=== PATIENT | female | born 1995 | race Caucasian/White ===

== ENCOUNTER → 2020-11-16 | Outpatient (CLI) | payer BC ==
--- NOTE | 2020-11-16 17:09 | Diagnostic Imaging Report ---
INDICATION: Anatomy scan. TECHNIQUE: Multiple real-time grayscale images were obtained over the gravid uterus. COMPARISON: None FINDINGS: A single live intrauterine gestation is visualized in cephalic presentation. heart tones were measured at 126 bpm. The placenta is anterior and not low lying. Amniotic fluid is visually normal although no measurements were obtained during the exam. The cervical length measures 4.4 cm. Views of the adnexa demonstrate no evidence of mass. Cerebellum: visualized Lateral ventricles: visualized Cavum septum pellucidum: visualized Nasal Bone: visualized Face: visualized Stomach: visualized Kidneys: visualized Bladder: visualized Three vessel cord: visualized Cord insertion: visualized 4 chamber heart: visualized outflow tracts: Not well visualized Spine, upper: Not well visualized Spine, lower: Not well visualized Upper extremities: visualized Lower extremities: visualized Hands: Visualized, however not all fingers are well seen. Feet: Visualized, however not all toes are well seen. Biometrical measurements are as follows: Biparietal 4.74 cm, age 20 weeks 3 days. Head circumference 17.79 cm, age 20 weeks 2 days. Abdominal circumference 15.25 cm, age 20 weeks 4 days. Femur length 3.63 cm, age 21 weeks 4 days. Sonographic estimate age: 20 weeks 5 days. Sonographic estimated date of delivery: 03/31/2021. Estimated Weight: 382 gm (+/- 56 gm). LMP percentile: 93%. heart rate: 126 beats per minute. number: 1 of 1. IMPRESSION: 1. Single live intrauterine gestation is visualized measuring 20 weeks 5 days with an estimated due date of 03/31/2021. These are within range with the clinical dates. 2. The outflow tracts and upper and lower spine are not well visualized due to position. The remainder of the anatomic structures are seen and have a normal appearance. Recommend follow-up as indicated. Dictated by: Dictated on workstation # [id number]
== END ==
LOC: RAD 15:07
PROVIDERS: ATTEND Obstetrics & Gynecology
DX: Z34.92 Encounter for supervision of normal pregnancy, unspecified, second trimester (principal); Z3A.20 20 weeks gestation of pregnancy
CPT/HCPCS: 76805

== ENCOUNTER → 2021-03-28 | Outpatient (CLI) ==
[2021-03-28 12:34] LABS: URINE CREATININE FOR RATIO 38 MG/DL (30-125)
[2021-03-28 12:35] LABS: URINE PROTEIN FOR RATIO ONLY < 6 MG/DL (6-12)
== END ==
LOC: MERGE 12:11 → LABNPT 12:11
PROVIDERS: ATTEND Obstetrics & Gynecology
DX: O13.9 Gestational [pregnancy-induced] hypertension without significant proteinuria, unspecified trimester (principal); Z3A.00 Weeks of gestation of pregnancy not specified
CPT/HCPCS: 82570; 84156

== ENCOUNTER 2021-04-03 19:00 | Inpatient (IN) | payer BC ==
[2021-04-03] VITALS (8 sets, daily range): BP systolic 132–145; BP diastolic 78–89
[~2021-04-03] VITALS: Ht 167.7 cm; Wt 109.5 kg
--- OUTSIDE RECORDS SUMMARY | 2021-04-03 19:29 | XMS REPORT | CCD ---
Author Author Brenda Oconnor, Ne Mercedes Organization [facility] Address [address] [place] [address] Phone Care Team Providers Care Early Childhood Worker Name Role Phone PP Unavailable CCM Unavailable Summary Purpose Interface Exchange Insurance Providers Payer name Policy type / Coverage type Covered libertarian ID Effective Begin Date Effective End Date Blue Cross Blue Shield Blue Cross/Blue Shield [id number] Unknown Family history Mother Diagnosis Age At Onset Hypertension Unknown Fibromyalgia Unknown Father Diagnosis Age At Onset Hypertension Unknown Grandmother Diagnosis Age At Onset Breast cancer Unknown Skin cancer Unknown Hypertension Unknown Stroke Unknown Cancer Unknown Diabetes mellitus Type 2 Unknown Grandfather Diagnosis Age At Onset Myocardial infarction Unknown Diabetes mellitus Type 2 Unknown Grandfather Diagnosis Age At Onset Prostate Cancer Unknown Transient ischemic attack (TIA) Unknown Diabetes mellitus Type 2 Unknown Grandmother Diagnosis Age At Onset Multiple sclerosis Unknown Social History Social History Element Codes Description Effective Dates Marital status Unknown 03/29/2021 Employment Unknown Currently employed [employer] 03/29/[address]: 954509230 Has never smoked or chewed tobacco 03/29/[address]: 320553480 Never drinks alcoho l currently alcohol 03/29/2021 Has the patient ever used illegal drugs? Unknown Has nev er used illegal drugs 03/29/2021 Allergies, Adverse Reactions, Alerts Substance Reaction Codes Entered Date Inactivated Date Status * NO KNOWN ENVIRONMENTAL ALLERGIES Unknown 03/29/2021 N o Inactive Date Active * NO KNOWN FOOD ALLERGIES Unknown 03/29/2021 No Inactiv e Date Active _ Unknown 03/29/2021 No Inactive Date Active Problems Condition Codes Effective Dates Condition Status Hypertension Unknown 03/29/2021 Active Cervicalgia ICD-10: M54.2 ICD-9: 723.1 03/29/2021 Active Essential (primary) hypertension ICD-10: I10 ICD-9: 401.9 03/29/2021 Active Verruca ICD-10: B07.9 ICD-9: 078.10 03/29/2021 Active Medications Medication Codes Instructions Start Date Stop Date Status Fill Instructions vitamin no.102-iron 90 mg-folate 1 mg-dha 200 mg ca psule RxNorm: Take 1 Capsule(s) Oral QD 03/29/2021 No Stop Date Active tizanidine 2 mg capsule RxNorm: 704805 Capsule(s) Oral as needed No Stop Date Active Aspirin Low Dose 81 mg tablet,delayed release RxNorm: 699200 Take 1 Tablet(s) Oral QD 03/29/2021 No Stop Date Active amlodipine 2.5 mg tablet RxNorm: 938485 Take 1 Tablet(s) Oral QD No Stop Date Active tizanidine 2 mg capsule RxNorm: 572327 Take 1 Capsule(s ) Oral three times a day as needed for spasm 03/29/2021 03/29/2021 Inactive Medication Administered No Medication Administered data Immunizations No Immunization data Results No Results data Procedures No Procedures data Vital Signs Date Vital 03/29/2021 Blood Pressure 1: 140/88 Code: 8480-6 BMI: 38.9 Code: 31006-1 Heart Rate 1: 96 bpm Height: 5'6" Code: 8302-2 Respiratory Rate: 20 bpm SpO2: 97% Temperature: 37.1 (C) / 98.8 (F) Weight: 241 lbs Code: 03055-4 Functional Status No Functional Status data Reason For Visit Reason For Visit Effective Dates Notes ~generic 03/29/2021 [facility] Encounters Encounter Performer Location Codes Date () OFFICE/OUTPATIENT VISIT NEW Diagnosis: Essential (primary) hypertension[ICD10: I10] Diagnosis: Cervicalgia[ICD10: M54.2] Diagnosis: Verruca[ICD10: B07.9] [facility] CPT-4: 88310 03/29/2021 Plan of Care Planned Activity Notes Codes Status Date Visit Diagnosis Plan: Cervicalgia Discussion: Uses tiz anidine prn but has not had issues during ICD-9 : 723.1 ICD-10 : M54.2 03/29/2021 Visit Diagnosis Plan: Verruca Discussion: Can use topi alonso wart remover at bedtime with tape ICD-9 : 078.10 ICD-10 : B07.9 03/29/2021 Visit Diagnosis Plan: Essential (primary) hypertension Discussion: Will continue amlodopine and see me 3mos after delivery since will see OB at 6 weeks then me another 6 weeks after that unless having worsening issues with BP ICD-9 : 401.9 ICD-10 : I10 03/29/2021 Patient Education: [employer] Card Patient Savings Mess age Completed 03/29/2021 Instructions No Instructions Medical Equipment No Medical Equipment data Health Concerns Section Health Concerns data not found Goals Section Goals data not found Interventions Section Interventions data not found Health Status Evaluations/Outcomes Section Health Status Evaluations/Outcomes data not found Advance Directives No Advance Directive data
--- OUTSIDE RECORDS SUMMARY | 2021-04-03 19:29 | XMS REPORT | CCD ---
Author Author Brenda Oconnor, Ne Mercedes Organization [facility] Address [address] [place] [address] Phone Care Team Providers Care Senior Tax Analyst Name Role Phone PP Unavailable CCM Unavailable Summary Purpose Interface Exchange Insurance Providers Payer name Policy type / Coverage type Covered green party ID Effective Begin Date Effective End Date Blue Cross Blue Shield Blue Cross/Blue Shield [id number] Unknown Family history Mother Diagnosis Age At [...] [employer] 03/29/[address]: 044449372 Has never smoked or chewed tobacco 03/29/[address]: 064345409 Never drinks alcoho l currently alcohol 03/29/2021 [...] Date Active tizanidine 2 mg capsule RxNorm: 092126 Capsule(s) Oral as needed No Stop Date Active Aspirin Low Dose 81 mg tablet,delayed release RxNorm: 540570 Take 1 Tablet(s) Oral QD 03/29/2021 No Stop Date Active amlodipine 2.5 mg tablet RxNorm: 443847 Take 1 Tablet(s) Oral QD No Stop Date Active tizanidine 2 mg capsule RxNorm: 743687 Take 1 Capsule(s ) Oral three times a day as needed for spasm 03/29/2021 03/29/2021 Inactive Medication Administered No Medication Administered data Immunizations No Immunization data Results No Results data Procedures No Procedures data Vital Signs Date Vital 03/29/2021 Blood Pressure 1: 140/88 Code: 8480-6 BMI: 38.9 Code: 18873-8 Heart Rate 1: 96 bpm Height: 5'6" Code: 8302-2 Respiratory Rate: 20 bpm SpO2: 97% Temperature: 37.1 (C) / 98.8 (F) Weight: 241 lbs Code: 92840-1 Functional Status No Functional Status data Reason For Visit Reason For Visit Effective Dates Notes ~generic 03/29/2021 [facility] En[facility]ters Encounter Performer Location Codes Date () OFFICE/OUTPATIENT VISIT NEW Diagnosis: Essential (primary) hypertension[ICD10: I10] Diagnosis: Cervicalgia[ICD10: M54.2] Diagnosis: Verruca[ICD10: B07.9] [facility] CPT-4: 94862 03/29/2021 Plan of Care Planned Activity Notes [...] 401.9 ICD-10 : I10 03/29/2021 Patient Education: [employer] Disc[employer] Card Patient Savings Mess age Completed 03/29/2021 Instructions No Instructions Medical Equipment No Medical Equipment data Health Concerns Section Health Concerns data not found Goals Section Goals data not found Interventions Section Interventions data not found Health Status Evaluations/Outcomes Section Health Status Evaluations/Outcomes data not found Advance Directives No Advance Directive data
--- OUTSIDE RECORDS SUMMARY | 2021-04-03 19:29 | XMS REPORT | CCD ---
Author Author Brenda Oconnor, Ne Mercedes Organization [facility] Address [address] [place] [address] Phone Care Team Providers Care Wedding Consultant Name Role Phone PP Unavailable CCM Unavailable Summary Purpose Interface Exchange Insurance Providers Payer name Policy type / Coverage type Covered libertarian ID Effective Begin Date Effective End Date Blue Cross Blue Shield Blue Cross/Blue Shield [id number] Unknown Family history Mother Diagnosis Age At [...] [employer] 03/29/[address]: 444584987 Has never smoked or chewed tobacco 03/29/[address]: 693747448 Never drinks alcoho l currently alcohol 03/29/2021 [...] Date Active tizanidine 2 mg capsule RxNorm: 343075 Capsule(s) Oral as needed No Stop Date Active Aspirin Low Dose 81 mg tablet,delayed release RxNorm: 456861 Take 1 Tablet(s) Oral QD 03/29/2021 No Stop Date Active amlodipine 2.5 mg tablet RxNorm: 253497 Take 1 Tablet(s) Oral QD No Stop Date Active tizanidine 2 mg capsule RxNorm: 801654 Take 1 Capsule(s ) Oral three times a day as needed for spasm 03/29/2021 03/29/2021 Inactive Medication Administered No Medication Administered data Immunizations No Immunization data Results No Results data Procedures No Procedures data Vital Signs Date Vital 03/29/2021 Blood Pressure 1: 140/88 Code: 8480-6 BMI: 38.9 Code: 99952-8 Heart Rate 1: 96 bpm Height: 5'6" Code: 8302-2 Respiratory Rate: 20 bpm SpO2: 97% Temperature: 37.1 (C) / 98.8 (F) Weight: 241 lbs Code: 71242-3 Functional Status No Functional Status data Reason For Visit Reason For Visit Effective Dates Notes ~generic 03/29/2021 [facility] Encounter Performer Location Codes Date () OFFICE/OUTPATIENT VISIT NEW Diagnosis: Essential (primary) hypertension[ICD10: I10] Diagnosis: Cervicalgia[ICD10: M54.2] Diagnosis: Verruca[ICD10: B07.9] [facility] CPT-4: 57011 03/29/2021 Plan of Care Planned Activity Notes [...] 401.9 ICD-10 : I10 03/29/2021 Patient Education: [employer] Card Patient Savings Mess age Completed 03/29/2021 Instructions No Instructions Medical Equipment No Medical Equipment data Health Concerns Section Health Concerns data not found Goals Section Goals data not found Interventions Section Interventions data not found Health Status Evaluations/Outcomes Section Health Status Evaluations/Outcomes data not found Advance Directives No Advance Directive data
[2021-04-03] MEDS ORDERED: TERBUTALINE INJ 1 MG/ML (BRETHINE) AMP SC PRN (20:00)
[2021-04-03 20:30] LABS: BASOPHILS % (AUTO) 0 % (0-10); EOSINOPHILS % (AUTO) 0 % (0-10); HEMATOCRIT 31 % (35-52); LYMPHOCYTES # (AUTO) 2.7 10^3/uL (1.0-4.0); LYMPHOCYTES % (AUTO) 29 % (12-44); MEAN CORPUSCULAR HEMOGLOBIN 25 pg (25-34); MEAN CORPUSCULAR HGB CONC 32 g/dL (32-36); MEAN CORPUSCULAR VOLUME 77 fL (80-99); MEAN PLATELET VOLUME 9.7 fL (9.0-12.2); MONOCYTES % (AUTO) 10 % (0-12); NEUTROPHILS # (AUTO) 5.5 10^3/uL (1.8-7.8); NEUTROPHILS % (AUTO) 60 % (42-75); PLATELET COUNT 292 10^3/uL (130-400); WHITE BLOOD COUNT 9.3 10^3/uL (4.3-11.0)
[2021-04-03] MEDS: LACTATED RINGERS 1,000 ML IV SCH (20:44)
[2021-04-03] MEDS: D5 LR IV SOLUTION 1,000 ML IV SCH (21:42)
[2021-04-03] MEDS ORDERED: CATHETER FLUSH 10 ML SYR IV SCH (22:00)
[2021-04-04] VITALS (62 sets, daily range): BP systolic 98–155; BP diastolic 9–106
[2021-04-04] MEDS: D5 LR IV SOLUTION 1,000 ML IV SCH ×2 (03:41→11:43)
[2021-04-04] MEDS ORDERED: FLU QUADRIvalent (3YOA+) 60 mcg/0.5 ml 2021-22(AFLURIA) IM ONE (07:15)
[2021-04-04] MEDS ORDERED: OXYTOCIN PRE-MIX DRIP 500 ML IV ONE ×2 (08:18→19:05)
[2021-04-04] MEDS ORDERED: OXYTOCIN PRE-MIX DRIP 500 ML IV SCH ×2 (08:30→18:45)
--- NOTE | 2021-04-04 08:52 | History & Physical-OB ---
OB - Chief Complaint & HPI Date/Time Date of Admission: Date of Admission: Apr 03, 2021 at 7:22 pm Date seen by a Provider: Apr 04, 2021 Time Seen by a Provider: 08:00 Chief Complaint/History OB-Reason for Admission/Chief: Induction of Labor Hx : 1 Hx Para: 0 Expected Date of Delivery: Apr 06, 2021 Gestational Age in Weeks: 39 Gestational Age in Days: 5 Other reason for admission: GHTN. 39 weeks History of Labs B pos Antibody neg RNI RPR NR HBsAg NR HIV NR GC neg GBS neg Allergies and Home Medications Allergies Coded Allergies: No Known Drug Allergies (Unverified , 04/03/21) Patient Home Medication List Home Medication List Reviewed: Yes OB - History Hx of Present Care: Yes Ultrasounds: Normal mid trimester US Obstetrical Complications: Gestational Hypertension Medical Complications: None Obstetrical History Hx : 1 Hx Para: 0 Hx Total # of Abortions (Spona: 0 Patient Past Medical History n/a Social History/Family History Alcohol Use: Denies Use Recreational Drug Use: No 2nd Hand Smoke Exposure: No Immunizations Hepatitis A: Yes Hepatitis B: Yes OB - Admission Exam Physical Exam Vitals: Vital Signs 04/03/21 04/04/21 04/04/21 21:30 07:15 08:10 Temp 37.3 Pulse 101 Resp 20 B/P (MAP) 140/106 (117) Pulse Ox 98 O2 Delivery Room Air HEENT: NCAT Heart: Rhythm Normal Lungs: Clear Abdomen: Gravid Extremities: Normal Reflexes: Normal Cervical Dilatation: None Effacement: 50% Station: -2 Membranes: Intact Heart Rate: 130's Accelerations: Accelerations Present Decelerations: No Decelerations Short Term Variability: Present [place]ush Man Variability: Average (6-25) Contractions on Admission: 6-10 Minutes Apart Intensity: Mild Levi Scoring Tool (Modified) Dilation (cm): 0/Closed (0) Effacement (%): 31-51% (1) Descent/Station: -2 (1) Cervix Consistency: Soft (2) Cervix Position: Anterior (2) Subtract 1 point for: Nulliparity (-1) Levi Score: 5 Labs Laboratory Tests Test 04/03/21 20:25 Range/Units White Blood Count 9.3 4.3-11.0 10^3/uL Red Blood Count 4.05 3.80-5.11 10^6/uL Hemoglobin 10.0 L 11.5-16.0 g/dL Hematocrit 31 L 35-52 % Mean Corpuscular Volume 77 L 80-99 fL Mean Corpuscular Hemoglobin 25 25-34 pg Mean Corpuscular Hemoglobin Concent 32 32-36 g/dL Red Cell Distribution Width 13.4 10.0-14.5 % Platelet Count 292 130-400 10^3/uL Mean Platelet Volume 9.7 9.0-12.2 fL Immature Granulocyte % (Auto) 0 % Neutrophils (%) (Auto) 60 42-75 % Lymphocytes (%) (Auto) 29 12-44 % Monocytes (%) (Auto) 10 0-12 % Eosinophils (%) (Auto) 0 0-10 % Basophils (%) (Auto) 0 0-10 % Neutrophils # (Auto) 5.5 1.8-7.8 10^3/uL Lymphocytes # (Auto) 2.7 1.0-4.0 10^3/uL Monocytes # (Auto) 1.0 0.0-1.0 10^3/uL Eosinophils # (Auto) 0.0 0.0-0.3 10^3/uL Basophils # (Auto) 0.0 0.0-0.1 10^3/uL Immature Granulocyte # (Auto) 0.0 0.0-0.1 10^3/uL OB - Assessment/Plan/Diagnosis Assessment Assessment: induction of labor Admission Dx 26yo @ 39.5 weeks GHTN GBS neg Admission Status: Inpatient Order (span 2 midnights) Reason for Inpatient Admission: IOL at 39 weeks Plan Induction Method: per Misoprostol Protocol Other Plan Discussed with patient unfavorable cervix, however due to GHTN cannot wait further to start delivery place. Risk of reviewed. Will require cervical ripening, started on misoprostol last night. DEVENDRA PARSONS DO Apr 04, 2021 8:52 am
[2021-04-04] MEDS ORDERED: PREN1TAB19 PO (09:17)
[2021-04-04] MEDS ORDERED: ASPI-1238 PO (09:19)
[2021-04-04] MEDS ORDERED: AMLO2.5T2 PO (09:19)
[2021-04-04] MEDS ORDERED: CATHETER FLUSH 10 ML SYR IV PRN (17:30)
[2021-04-04] MEDS ORDERED: LACTATED RINGERS 1,000 ML IV PRN ×2 (17:30)
[2021-04-04] MEDS ORDERED: CITRIC ACID/SOB CIT (BICITRA) 30 ML UDC PO ONE (17:30)
[2021-04-04] MEDS ORDERED: FAMOTIDINE 20MG/2ML IV (PEPCID) IV ONE (17:30)
[2021-04-04] MEDS ORDERED: METOCLOPRAMIDE INJ 10 MG/2 ML (REGLAN) IV ONE (17:30)
[2021-04-04] MEDS ORDERED: ceFAZolin 2 GM IV Premixed 50 ML IV ONE (17:30)
[2021-04-04] MEDS: LACTATED RINGERS 1,000 ML IV SCH ×2 (17:39→18:52)
[2021-04-04] MEDS ORDERED: METOCLOPRAMIDE INJ 10 MG/2 ML (REGLAN) ONE (17:58)
[2021-04-04] MEDS ORDERED: OXYTOCIN PRE-MIX DRIP 1,000 ML IV ONE (18:30)
--- NOTE | 2021-04-04 18:33 | Progress Note ---
Standard Progress Note Progress Notes/Assess & Plan Date Seen by a Provider: Apr 04, 2021 Time Seen by a Provider: 18:30 Progress/Assessment & Plan Patient was admitted yesterday evening for IOL due to GHTN and 39 weeks, she was closed at admission, after overnight cytotec PO, followed by Pitocin augmentation all day with no change in cervical dilatation the patient was offered to eat, and repeat process tomorrow, vs . She would prefer delivery due to concerns of ongoing BP rising although not emergent yet. Risk of surgery reviewed in detail, OR staff contracted and will proceed jackeline. DEVENDRA PARSONS DO Apr 04, 2021 18:33
--- NOTE | 2021-04-04 18:37 | Discharge Inst-Women's Service ---
Discharge Inst-Women's Serv Depart Medication/Instructions New, Converted or Re-Newed RX: RX on Chart Final Diagnosis POD 2 PLTCS Problems Reviewed?: Yes Consults/Follow Up Additional Follow Up: Yes Orders/Referrals Dr. aMmta mack n7-10 days and in 6 weeks Activity Activity: Activity as Tolerated Driving Instructions: No Driving for 1 Week NO SMOKING: NO SMOKING Nothing Inside Vagina: No Douching, No [place], No Tampons Diet Discharge Diet: No Restrictions Symptoms to Report to : Bleeding Excessive, Pain Increased, Fever Over 101 Degrees F, Vaginal Bleeding Increase, Questions/Concerns For Any Problems or Questions: Contact Your Physician Skin/Wound Care Infection Signs and Symptoms: Increased Redness, Foul Odor of Wound, Increased Drainage, Skin Itchy or Has a Rash, Increased Swelling, Temperature Above 101 F Operative Area Clean and Dry: Keep Incision Clean/Dry Stitches/Sophia/Dermabond: Dermabond, Care of Stitches Bathing Instructions: DEVENDRA Hart DO Apr 04, 2021 18:37
[2021-04-04] MEDS ORDERED: IBUP-844 PO (18:38)
[2021-04-04] MEDS ORDERED: ACHD5005 PO (18:38)
[2021-04-04] MEDS ORDERED: DOCU100C37 PO (18:38)
[2021-04-04] MEDS ORDERED: MEASLES,MUMPS,RUBELLA 1 EA INJ SC SCH (18:45)
[2021-04-04] MEDS ORDERED: TETANUS,DIPTH,PERTUSS P/F (BOOSTRIX) 0.5 ML VIAL IM SCH (18:45)
[2021-04-04] MEDS ORDERED: ONDANSETRON 4 MG/2 ML (SDV) Z0FRAN IVP PRN (18:45)
[2021-04-04] MEDS ORDERED: NALOXONE 0.4 MG/ML 1 ML (NARCAN) VIAL IV PRN (18:45)
[2021-04-04] MEDS ORDERED: KETAMINE HCL 100 MG/ML 5 ML VIAL ONE (18:51)
[2021-04-04] MEDS ORDERED: fentaNYL INJ 100 MCG/2 ML AMP ONE (18:51)
[2021-04-04] MEDS ORDERED: ONDANSETRON 4 MG/2 ML (SDV) Z0FRAN ONE (19:04)
[2021-04-04] MEDS ORDERED: KETOROLAC 30 MG/ML VIAL ONE (19:04)
[2021-04-04] MEDS: KETOROLAC 30 MG/ML VIAL IV SCH (19:30)
[2021-04-04] MEDS ORDERED: BUPIVACAINE 0.5% 30 ML (SENSORCAINE) VIAL ONE (19:41)
[2021-04-04] MEDS ORDERED: CATHETER FLUSH 10 ML SYR IV SCH (22:00)
[2021-04-04] MEDS: HYDROcodone/APAP 5 MG/325 MG (LORTAB) TAB PO PRN (22:59)
[2021-04-04] MEDS: DOCUSATE SODIUM 100 MG (COLACE) CAP PO SCH (23:00)
[2021-04-05] VITALS (7 sets, daily range): BP systolic 137–166; BP diastolic 91–103
[2021-04-05] MEDS: KETOROLAC 30 MG/ML VIAL IV SCH ×3 (02:16→14:40)
--- NOTE | 2021-04-05 05:20 | OPERATIVE REPORT ---
DATE OF SERVICE: PREOPERATIVE DIAGNOSES: 1. A 26-year-old G1, P0 at 39 weeks and 5 days gestation. 2. Failure to dilate. POSTOPERATIVE DIAGNOSES: 1. A 26-year-old G1, P0 at 39 weeks and 5 days gestation. 2. Failure to dilate. PROCEDURE: Primary low transverse section. SURGEON: Sha Oleary DO ANESTHESIA: Spinal. ESTIMATED BLOOD LOSS: 500 mL URINE OUTPUT: 200 mL clear at the end of the procedure. FLUIDS: 1000 mL lactated Ringer's solution. FINDINGS: A live male infant weighing 7 pounds 6 ounces, Apgars of 8 and 9. Grossly normal appearing uterus, bilateral tubes and ovaries. SPECIMEN SENT: Placenta. INDICATIONS FOR PROCEDURE: This 26-year-old female is a patient that was sent over for induction due to gestational hypertension at 39 weeks. Her pressures were as high as 150/100. Due to this, we decided to induce her despite an unfavorable cervix. She was induced using both Cytotec and Pitocin augmentation and never progressed past and open cervix. Due to failure of the cervix to dilate, I discussed with the patient repeating an induction tomorrow versus . The patient opted to proceed with delivery. Risks of procedure were discussed with the patient in detail including risk of bleeding, infection, damage to surrounding structures including, but not limited to bowel, bladder, ureter, kidneys, possible need for operation, postoperative complications that may occur, risk from anesthesia and even . After everything was discussed with the patient in detail, consent was obtained, the patient was taken to the operating room. OPERATIVE REPORT IN DETAIL: Once in the operating room, spinal analgesia was found to be adequate. She was placed in supine position with leftward tilt, prepped and draped in normal sterile fashion. Timeout was performed and anesthesia was tested to make a Pfannenstiel skin incision with a knife and carried down to underlying fascia using Bovie cautery. Fascial incision extended laterally using Bovie cautery. Superior aspect of fascial incision was then grasped with Jaelyn clamps, tented up and dissected off the underlying rectus muscles. The inferior aspect of fascial incision was grasped with Jaelyn clamps, tented up and dissected off the underlying rectus muscles. Rectus muscles were then dissected down the midline using An scissors, which exposed the peritoneum, which I entered bluntly and extended using blunt traction. Alejandro ring retractor was placed in the peritoneal incision, which offers excellent lateral sidewall retraction. I identified the lower uterine segment, which was found to be thinned out and make a low transverse incision to the vesicouterine peritoneum and bluntly dissect this off the lower uterine segment, creating a bladder flap. I then proceeded with my myotomy until membranes were visualized, at which point I extended the uterine incision laterally and superiorly using bandage scissors. Amniotomy was then performed using Allis clamp. Clear fluid was noted. was found in vertex presentation. With gentle fundal pressure, the infant's head was elevated up the incision where it was delivered through the incision. The nares and oropharynx were bulb suctioned. A nuchal cord x3 was reduced. Anterior and posterior shoulders were delivered. Infant was then brought to the operating field with cord doubly clamped and cut and infant was handed off to waiting nurses in attendance. Cord blood was collected, 3-vessel cord with intact placenta was delivered spontaneously thereafter. IV Pitocin was initiated to facilitate uterine contraction. Uterine fundus confirmed by manual massage. Uterus was then exteriorized and cleared of all endometrial clots and debris. I then proceeded with closing the uterine incision using 0 Vicryl suture in running locked fashion. Second layer of imbricating 0 Monocryl was placed. Excellent hemostasis was noted after doing this. I then placed the uterus back in the pelvis and copiously irrigated the pelvis using normal saline. There was no active bleeding noted from any of my dissection planes. I placed Interceed antiadhesive over my low transverse incision. I removed the Alejandro ring retractor and proceeded with closing the peritoneum using 3-0 Vicryl suture in running fashion. Rectus muscle reapproximated using 3-0 Vicryl suture in an interrupted fashion. The fascia was reapproximated using 0 Vicryl suture in running fashion. The subcutaneous tissue was reapproximated using 3-0 plain interrupted subcutaneous stitch and the skin reapproximated using 4-0 Monocryl running subcuticular. Dermabond was applied to incision and sterile dressing was adhesed with white tape. The patient tolerated the procedure well and was taken to recovery area in stable condition. Lap and sponge counts were correct at the end of procedure. Instrument counts correct as well. Two grams of Ancef given preoperatively for infection prophylaxis. Job ID: [id number] DocumentID: [id number] Dictated Date: 04/04/2021 19:48:18 Well Servicing Rig Operator Date: 04/05/2021 03:32:35 Dictated By: DO KASHIF CROWLEY
[2021-04-05 05:47] LABS: BASOPHILS % (AUTO) 0 % (0-10); EOSINOPHILS # (AUTO) 0.1 10^3/uL (0.0-0.3); EOSINOPHILS % (AUTO) 1 % (0-10); HEMATOCRIT 30 % (35-52); HEMOGLOBIN 9.5 g/dL (11.5-16.0); LYMPHOCYTES # (AUTO) 2.8 10^3/uL (1.0-4.0); LYMPHOCYTES % (AUTO) 21 % (12-44); MEAN CORPUSCULAR HEMOGLOBIN 25 pg (25-34); MEAN CORPUSCULAR HGB CONC 32 g/dL (32-36); MEAN CORPUSCULAR VOLUME 77 fL (80-99); MEAN PLATELET VOLUME 9.8 fL (9.0-12.2); MONOCYTES # (AUTO) 1.4 10^3/uL (0.0-1.0); MONOCYTES % (AUTO) 11 % (0-12); NEUTROPHILS # (AUTO) 8.6 10^3/uL (1.8-7.8); NEUTROPHILS % (AUTO) 67 % (42-75); PLATELET COUNT 244 10^3/uL (130-400); WHITE BLOOD COUNT 12.9 10^3/uL (4.3-11.0)
[2021-04-05] MEDS ORDERED: amLODIPine 5 MG (NORVASC) TAB ONE (06:36)
[2021-04-05] MEDS: HYDROcodone/APAP 5 MG/325 MG (LORTAB) TAB PO PRN ×2 (06:40→19:44)
[2021-04-05] MEDS ORDERED: amLODIPine 5 MG (NORVASC) TAB PO ONE (06:45)
[2021-04-05] MEDS: DOCUSATE SODIUM 100 MG (COLACE) CAP PO SCH ×2 (08:09→19:44)
--- NOTE | 2021-04-05 08:29 | Postpartum Progress Note ---
Note Note Day # 1 Subjective: Patient is without complaints. Ambulating, voiding. Tolerating a regular diet without nausea or vomiting. Normal lochia. Pain is well controlled with oral pain medications. Objective: Physical Exam: General - Alert and oriented, no apparent distress Abdomen - Soft, appropriately tender to palpation, non-distended, fundus firm at umbilicus Extremities - no edema, negative Shayy's bilaterally Incision- c/d/i Assessment: POD 1 PLTCS Acute blood loss anemia GHTN Plan: Routine care. Restarted and increased Norvasc to 5mg Encourage breast feeding. Encourage ambulation. Ferrous sulfate supplementation. Plan for discharge tomorrow Vitals - Labs Vital Signs - I&O Vital Signs Date Time Temp Pulse Resp B/P (MAP) Pulse Ox O2 Delivery O2 Flow Rate FiO2 04/05/21 06:30 36.5 87 18 166/98 (120) Room Air 04/05/21 06:10 18 143/103 (116) Room Air 04/05/21 02:17 87 18 140/91 (107) 98 Room Air 04/04/21 21:32 36.8 83 146/70 (95) Room Air 04/04/21 20:55 Room Air 04/04/21 20:50 36.1 16 117/80 (92) 100 Room Air 04/04/21 20:40 18 113/80 (91) 100 Room Air 04/04/21 20:30 Room Air 04/04/21 20:30 16 115/85 (95) 100 Room Air 04/04/21 20:20 16 98/66 (77) 100 Room Air 04/04/21 20:10 16 109/77 (88) 100 Room Air 04/04/21 20:00 Room Air 04/04/21 20:00 36.1 20 105/77 (86) 100 Room Air 04/04/21 18:30 37.1 90 138/95 (109) 98 Room Air 04/04/21 18:00 04/04/21 17:30 37.1 86 20 142/94 (110) 04/04/21 17:00 85 152/97 (115) 04/04/21 16:45 89 144/86 (105) 04/04/21 16:30 72 144/96 (112) 04/04/21 16:15 85 136/91 (106) 04/04/21 16:00 36.7 82 20 133/90 (104) 04/04/21 15:45 78 142/96 (111) 04/04/21 15:30 80 137/9 (51) 04/04/21 15:15 04/04/21 15:00 85 138/92 (107) 04/04/21 14:45 78 142/96 (111) 04/04/21 14:30 78 140/93 (109) 04/04/21 14:15 80 139/93 (108) 04/04/21 14:00 73 142/96 (111) 04/04/21 13:45 70 20 149/94 (112) 04/04/21 13:30 77 144/104 (117) 04/04/21 13:15 80 138/99 (112) 04/04/21 13:00 88 135/97 (110) 04/04/21 12:45 79 134/99 (111) 04/04/21 12:30 79 131/89 (103) 04/04/21 12:15 82 135/95 (108) 04/04/21 12:00 79 131/87 (102) 04/04/21 11:45 83 137/96 (110) 04/04/21 11:30 36.9 90 136/96 (109) 04/04/21 11:15 78 20 138/94 (109) 04/04/21 11:00 80 133/88 (103) 04/04/21 10:45 74 134/89 (104) 04/04/21 10:30 76 134/89 (104) 04/04/21 10:15 81 136/92 (107) 04/04/21 10:00 78 141/98 (112) 04/04/21 09:45 80 134/92 (106) 04/04/21 09:30 86 20 136/92 (107) 04/04/21 09:15 81 136/92 (107) 04/04/21 09:00 79 136/93 (107) 04/04/21 08:45 78 140/98 (112) 04/04/21 08:30 73 149/92 (111) I & O 04/05/21 06:59 Intake Total 3125 ml Output Total 500 ml Balance 2625 ml Labs Laboratory Tests 04/05/21 05:34: White Blood Count 12.9H, Red Blood Count 3.83, Hemoglobin 9.5L, Hematocrit 30L, Mean Corpuscular Volume 77L, Mean Corpuscular Hemoglobin 25, Mean Corpuscular Hemoglobin Concent 32, Red Cell Distribution Width 13.2, Platelet Count 244, Mean Platelet Volume 9.8, Immature Granulocyte % (Auto) 0, Neutrophils (%) (Auto) 67, Lymphocytes (%) (Auto) 21, Monocytes (%) (Auto) 11, Eosinophils (%) (Auto) 1, Basophils (%) (Auto) 0, Neutrophils # (Auto) 8.6H, Lymphocytes # (Auto ) 2.8, Monocytes # (Auto) 1.4H, Eosinophils # (Auto) 0.1, Basophils # (Auto) 0.0, Immature Granulocyte # (Auto) 0.0 DEVENDRA PARSONS DO Apr 05, 2021 08:29
[2021-04-05] MEDS ORDERED: AMLO2.5T2 PO (08:30)
--- NOTE | 2021-04-05 11:09 | Anesthesia-Regional Post-Op ---
Regional Patient Condition Mental Status: Alert, Oriented x3 Circulation: Same as Pre-Op Headache: Absent Sensation: Full Recovery Motor Block: Absent Post Op Complications Complications None Follow Up Care/Instructions Patient Instructions None needed. Anesthesia/Patient Condition Patient is doing well, no complaints, stable vital signs, no apparent adverse anesthesia problems. No complications reported per nursing. GERALD TALBOT CRNA Apr 05, 2021 11:09
[2021-04-05] MEDS: IBUPROFEN 600 MG (MOTRIN) TAB PO SCH (19:44)
[2021-04-06] MEDS: IBUPROFEN 600 MG (MOTRIN) TAB PO SCH ×2 (01:58→09:44)
[2021-04-06 01:59] VITALS: BP 140/95
[2021-04-06] MEDS: HYDROcodone/APAP 5 MG/325 MG (LORTAB) TAB PO PRN (02:41)
[2021-04-06] MEDS ORDERED: amLODIPine 5 MG (NORVASC) TAB PO SCH (09:00)
--- NOTE | 2021-04-06 09:17 | Postpartum Progress Note ---
Note Note Day # 2 Subjective: Patient is without complaints. Ambulating, voiding. Tolerating a regular diet without nausea or vomiting. Normal lochia. Pain is well controlled with oral pain medications. Objective: Physical Exam: General - Alert and oriented, no apparent distress Abdomen - Soft, appropriately tender to palpation, non-distended, fundus firm at umbilicus; incision c/d/i Extremities - no edema, negative Shayy's bilaterally Assessment: Post- day # 2, status post PLTCS. Recovering well, hemodynamically stable Acute blood loss anemia Plan: Routine care. Encourage breast feeding. Encourage ambulation. Ferrous sulfate supplementation. Plan for discharge today Vitals - Labs Vital Signs - I&O Vital Signs Date Time Temp Pulse Resp B/P (MAP) Pulse Ox O2 Delivery O2 Flow Rate FiO2 04/06/21 01:59 36.5 96 18 140/95 (110) 98 Room Air 04/05/21 19:52 37.0 107 18 141/101 (114) 98 Room Air 04/05/21 16:50 36.5 96 18 137/93 (108) 99 Room Air 04/05/21 12:42 36.5 95 18 142/94 (110) 98 Room Air I & O 04/06/21 07:00 Intake Total 1200 ml Output Total 1700 ml Balance -500 ml JEFRY EPPERSON APRN Apr 06, 2021 09:17
[2021-04-06] MEDS: DOCUSATE SODIUM 100 MG (COLACE) CAP PO SCH (09:43)
[2021-04-06 09:45] VITALS: BP 154/100
[2021-04-06 12:15] VITALS: BP 140/96
[2021-04-06] MEDS ORDERED: COVID-19 VACC, MRNA(PFIZER)/PF 30 MCG/0.3 ML VIAL IM ONE (13:30)
[2021-04-06 15:09] VITALS: BP 160/95
== END 2021-04-06 15:28 | disposition home or self-care (01) | DRG 787 ==
LOC: LDRP 19:22
PROVIDERS: ADMIT Obstetrics & Gynecology; ATTEND Obstetrics & Gynecology
PROC: 10D00Z1 Extraction of Products of Conception, Low, Open Approach (ICD-10-PCS; principal; 2021-04-04 18:50)
DX: O62.0 Primary inadequate contractions (principal); D62 Acute posthemorrhagic anemia; Z3A.39 39 weeks gestation of pregnancy; Z37.0 Single live birth; O13.4 Gestational [pregnancy-induced] hypertension without significant proteinuria, complicating childbirth; O90.81 Anemia of the puerperium
CPT/HCPCS: 36415; 85025; 86780; 86850; 86900; 86901; 90707; 91300; 94664

== ENCOUNTER → 2023-03-18 | Outpatient (CLI) | payer BC ==
[~2023-03-18] MED LIST: ACHD5005 PO; AMLO2.5T2 PO; ASPI-1238 PO; DOCU100C37 PO; IBUP-844 PO; PREN1TAB19 PO
--- NOTE | 2023-03-18 15:17 | Diagnostic Imaging Report ---
INDICATION: survey. TECHNIQUE: Multiple Real-time grayscale images were obtained over the gravid uterus. COMPARISON: None. FINDINGS: There is a single live fetus in a cephalic presentation. The heart rate was recorded at 127 BPM. The placenta is anterior. No previa is detected. The amniotic fluid index is 13.4 cm. The cervix is 4.9 cm in length. The kidneys, bladder, and stomach are unremarkable. The brain is unremarkable. There is a four-chamber heart. There is a three-vessel cord with normal insertion. The spine is unremarkable. Biometrical measurements are as follows: Biparietal 4.43 cm, age 19 weeks 3 days. Head circumference 17.4 cm, age 20 weeks 0 days. Abdominal circumference 14.1 cm, age 19 weeks 4 days. Femur length 3.2 cm, age 20 weeks 0 days. Sonographic estimate age: 19 weeks 6 days. Sonographic estimated date of delivery: 08/06/23. Estimated Weight: 308 gm (+/- 45 gm). LMP percentile: 23%. heart rate: 127 beats per minute. number: 1 of 1. IMPRESSION: Single live IUP measuring 19 weeks 6 days gestational age. The estimated date of confinement sonographically is 08/06/2023. Dictated by: Dictated on workstation # [id number]
== END ==
LOC: RAD 09:44
PROVIDERS: ATTEND Nurse Practitioner Women's Health
DX: Z36.9 Encounter for antenatal screening, unspecified (principal); Z3A.19 19 weeks gestation of pregnancy
CPT/HCPCS: 76805